=== PATIENT | male | born 1945 | race Caucasian/White ===

== ENCOUNTER 2022-02-08 13:59 | Outpatient (CLI) | payer MEDICARE, SELFPAY ==
--- NOTE | ~2022-02-08 | XR_ITS ---
XR abdomen/kub 1V 02/08/2022 14:23 Indication: Left ureteral stone Procedure: 2 view KUB Comparison: 07/11/2017 Findings: There is a right renal stone, unchanged. There are cholecystectomy clips. There is a left c alcification at the L3 level, likely stone in the left renal pelvis. There are pelvic phleboliths. Mo derate colonic fecal loading. Impression: 1: Bilateral renal stones. Reviewed, dictated and finalized at location A. Impression: 1: Bilateral renal stones.
== END 2022-02-08 14:00 | disposition home or self-care (01) ==
PROVIDERS: PCP Family Medicine; Visit Provider Nurse Practitioner Adult Health
DX: N20.1 Calculus of ureter (principal)
CPT/HCPCS: 74018

== ENCOUNTER → 2022-03-15 08:02 | Outpatient (CLI) | payer MEDICARE, SELFPAY ==
--- NOTE | ~2022-03-15 | CT_ITS ---
EXAMINATION: CT abdomen pelvis wo con DATE: 03/15/2022 08:29 INDICATION: Kidney calculus TECHNIQUE: Computed tomography (CT) of the abdomen and pelvis was performed without intravenous contr ast. Automated exposure control and iterative reconstruction technique were employed. Exam dose: 274 .94 mGy-cm total exam DLP. COMPARISON: 08/11/2017 CT abdomen pelvis 07/20/2017 CT abdomen pelvis FINDINGS: The lung bases are clear. Fat-containing right foramen of [place]dalek hernia. Normal heart size. No pericardial or pleural effusion. Numerous scattered hepatic cysts measuring up to approximately 2 cm maximal dimension. Status post cholecystectomy. Normal splenic size. Occasional splenic calcified granulomas. No pancreatic mass lesion or calcification. No bile duct or pancreatic duct dilatation. Normal morphology of the adrenal glands. Chronic bilateral renal cysts, measuring up to 5 cm approximately. Approximately 7 mm nonobstructing lower pole right renal calculus. Approximately 3 mm lower pole nono bstructing left renal calculus. No ureteral calculus or hydroureteronephrosis. Prostate enlargement and calcifications. The urinary bladder is relatively evacuated, unremarkable. Small fat-containing left inguinal hernia. Diverticulosis of the colon; no CT evidence of diverticulitis. No bowel obstruction, bowel wall thick ening, pneumatosis or intraperitoneal free air. There is atherosclerotic calcification but no aneurysm of the abdominal aorta. No intraperitoneal or retroperitoneal or pelvic mass lesion or adenopathy or ascites. 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 No suspicious osteolytic or oste oblastic lesions are noted. IMPRESSION: Bilateral nonobstructive nephrolithiasis Bilateral renal cysts Hepatic cysts Diverticulosis of the colon; no CT evidence of diverticulitis Prostate enlargement and calcifications Reviewed, dictated and finalized at [facility]. Reviewed, dictated and finalized at location B.
--- NOTE | ~2022-03-15 | XR_ITS ---
EXAMINATION: XR abdomen/kub 1V DATE: 03/15/2022 08:29 INDICATION: Calculus of kidney. TECHNIQUE: A supine view of the abdomen on 2 radiographs was obtained. COMPARISON: CT abdomen and pelvis 03/15/22 FINDINGS: There are no dilated loops of bowel. Surgical clips in the right upper quadrant are likely from cholecystectomy. There is a 6 mm stone in right kidney. There is a 4 mm stone in proximal left u reter. There is a phlebolith in right pelvis. IMPRESSION: 1. Stones in the right kidney and proximal left ureter. Reviewed, dictated and finalized at location A.
== END ==
PROVIDERS: PCP Family Medicine; Visit Provider Nurse Practitioner Adult Health
DX: N20.0 Calculus of kidney (principal); N20.1 Calculus of ureter; Q61.01 Congenital single renal cyst; K57.90 Diverticulosis of intestine, part unspecified, without perforation or abscess without bleeding; N40.0 Benign prostatic hyperplasia without lower urinary tract symptoms
CPT/HCPCS: 74018; 74176